=== PATIENT | female | born 1960 | race Caucasian/White ===

== ENCOUNTER 2022-05-15 07:46 | Outpatient (CLI) | payer OTHER, SELFPAY ==
[2022-05-15 14:06] LABS: Albumin* 4.3 g/dL (3.3-5.0)
[2022-05-15 14:07] LABS: Chloride* 106 mmol/L (96-114); Potassium* 4.4 mmol/L (3.6-5.1); Sodium* 138 mmol/L (135-149)
[2022-05-15 14:09] LABS: Aspartate Amino Transferase* 24 U/L (12-35); Bilirubin Total* 0.3 mg/dL (0.1-1.5); Blood Urea Nitrogen* 10 mg/dL (7-30); Carbon Dioxide* 24 mmol/L (20-32); Cholesterol* 222 mg/dL (90-199); Creatinine* 0.5 mg/dL (0.5-1.5); Estimated Glomerular Filt Rate 107 ml/min; Total Protein* 6.4 g/dL (6.0-8.3)
[2022-05-15 14:10] LABS: Alanine Aminotransferase* 16 U/L (4-35); Alkaline Phosphatase* 68 U/L (40-150); Calcium* 9.3 mg/dL (8.4-10.6); Glucose* 106 mg/dL (60-115); HDL Cholesterol* 43 mg/dL (>=50); LDL Cholesterol Calculated 151 mg/dL (<100); Triglycerides* 142 mg/dL (40-149)
[2022-05-15 14:15] LABS: Free T4 Free Thyroxine* 0.94 ng/dL (0.70-1.85)
== END 2022-05-15 07:47 | disposition home or self-care (01) ==
PROVIDERS: PCP Physician Assistant Medical; Visit Provider Physician Assistant Medical
DX: E03.9 Hypothyroidism, unspecified (principal)
CPT/HCPCS: 80053; 80061; 84439; 84443

== ENCOUNTER 2022-12-03 08:09 | Outpatient (CLI) | payer MEDICAID, SELFPAY ==
--- NOTE | 2022-12-03 08:15 | CRLHL7_ITS ---
For Patients: As a result of the Century Cures Act, medical imaging exams and procedure reports are released immediately into your electronic medical record. You may view this report before your referring provider. If you have questions, please contact your health care provider. BILATERAL SCREENING MAMMOGRAM WITH COMPUTER-AIDED DETECTION TECHNIQUE: CC and MLO views were obtained. These mammographic images have been obtained using full-field digital technique. These mammographic images were interpreted with the benefit of computer-aided detection. COMPARISON FILM: 03/19/21, 01/11/19, 12/29/17. FINDINGS: There are scattered areas of fibroglandular density IMPRESSION: There is no radiographic evidence for malignancy. ASSESSMENT: BI-RADS Category 1: Negative RECOMMENDATION: Routine screening mammogram in 1 year. A lay language report of this examination will be provided to the patient. David Leong M.D. Diagnostic Radiologist [email or web address] JAMEY/Dictated by: David Leong MD @ 12/03/2022 9:10:00 AM (Electronically Signed)
== END 2022-12-03 08:10 | disposition home or self-care (01) ==
LOC: MAMMO 08:11
PROVIDERS: PCP Physician Assistant Medical; Visit Provider Physician Assistant Medical
DX: Z12.31 Encounter for screening mammogram for malignant neoplasm of breast (principal)
CPT/HCPCS: 77067

== ENCOUNTER 2023-07-01 15:44 | Outpatient (CLI) | payer MEDICAID, SELFPAY | END 2023-07-01 15:45 | disposition home or self-care (01) | PROVIDERS: PCP Physician Assistant Medical; Visit Provider Physician Assistant Medical | DX: E78.5 Hyperlipidemia, unspecified (principal); E03.9 Hypothyroidism, unspecified | CPT/HCPCS: 80053; 80061; 84443 ==

== ENCOUNTER 2023-07-25 12:13 | Outpatient (CLI) | payer MEDICAID, SELFPAY ==
--- NOTE | 2023-07-25 12:46 | W.ANESCHARGE ---
Anesthesia Charges Start Date/Time Anesthesia Start Date: 07/25/23 Anesthesia Start Time: 13:01 Stop Date/Time Anesthesia Stop Date: 07/25/23 Anesthesia Stop Time: 13:36
--- NOTE | 2023-07-25 14:10 | W.ANESCHARGE ---
Anesthesia Charges Start Date/Time Anesthesia Start Date: 07/25/23 Anesthesia Start Time: 13:01 Stop Date/Time Anesthesia Stop Date: 07/25/23 Anesthesia Stop Time: 13:36
== END 2023-07-25 12:14 | disposition home or self-care (01) ==
LOC: OP CLINIC 12:13
PROVIDERS: PCP Physician Assistant Medical; Visit Provider Internal Medicine
DX: Z12.11 Encounter for screening for malignant neoplasm of colon (principal); K63.5 Polyp of colon; K57.30 Diverticulosis of large intestine without perforation or abscess without bleeding; Z86.010 Personal history of colon polyps
CPT/HCPCS: 00811; 45380; 88305; J2704

== ENCOUNTER 2025-03-03 14:46 | Outpatient (CLI) | payer MEDICAID, SELFPAY ==
[2025-03-10 16:28] LABS: HPV Source Cervix; HPV, High Risk by TMA Not Detected
== END 2025-03-03 14:47 | disposition home or self-care (01) ==
PROVIDERS: PCP Physician Assistant Medical; Visit Provider Registered Nurse
DX: E03.9 Hypothyroidism, unspecified (principal); Z11.51 Encounter for screening for human papillomavirus (HPV); Z12.4 Encounter for screening for malignant neoplasm of cervix
CPT/HCPCS: 84443; 87624; 87625; 88141; 88142

== ENCOUNTER 2025-03-09 08:12 | Outpatient (CLI) | payer MEDICAID, SELFPAY | END 2025-03-09 08:13 | disposition home or self-care (01) | LOC: NFLDREF 03-16 03:13 | PROVIDERS: PCP Physician Assistant Medical; Referring Provider Physician Assistant Medical; Visit Provider Physician Assistant Medical | DX: E78.5 Hyperlipidemia, unspecified (principal) | CPT/HCPCS: 80061 ==

== ENCOUNTER 2025-06-23 13:52 | Outpatient (CLI) | payer MEDICAID, SELFPAY ==
--- NOTE | 2025-06-23 14:00 | CRLHL7_ITS ---
For Patients: As a result of the Century Cures Act, medical imaging exams and procedure reports are released immediately into your electronic medical record. You may view this report before your referring provider. If you have questions, please contact your health care provider. INDICATION: BILATERAL SCREENING MAMMOGRAM, ASYMPTOMATIC 64 Y/O FEMALE COMPARISON: 12/03/2022, 03/19/2021, 01/11/2019 TECHNIQUE: Digital mammogram in CC and MLO projections including computer-aided detection (CAD) and tomosynthesis. BREAST COMPOSITION: There are scattered areas of fibroglandular density. FINDINGS: No suspicious findings. ASSESSMENT: BI-RADS 1 Negative RECOMMENDATION: Annual screening mammogram. A lay language report of this examination will be provided to the patient. Dictated by: David Leong MD @ 06/24/2025 09:47:52 (Electronically Signed)
== END 2025-06-23 13:53 | disposition home or self-care (01) ==
LOC: MAMMO 13:53
PROVIDERS: PCP Physician Assistant Medical; Visit Provider Registered Nurse
DX: Z12.31 Encounter for screening mammogram for malignant neoplasm of breast (principal)
CPT/HCPCS: 77063; 77067